=== PATIENT | female | born 1980 | race Caucasian/White ===

== ENCOUNTER 2023-07-14 14:20 | Emergency (ER) | payer OTHER, SELFPAY ==
[2023-07-14 14:22] VITALS: BP 133/92
[2023-07-14 14:55] LABS: % Basophils 0.5 % (0-2); % Eosinophils 0.3 % (0-6); % Immature Granulocytes 0.2 % (0-0.5); % Lymphocytes 15.9 % (20.5-51.1); % Monocytes 3.3 % (1.7-9.3); % Neutrophils 79.8 % (42.2-75.2); Absolute Basophils 0.1 10^3/uL (0-0.2); Absolute Lymphocytes 1.5 10^3/uL (1.2-3.4); Absolute Monocytes 0.3 10^3/uL (0.1-0.6); Absolute Neutrophils 7.3 10^3/uL (1.4-6.5); Hematocrit 43.4 % (37.0-47.0); Hemoglobin 15.1 g/dL (12.0-16.0); Mean Corp Hgb Conc. 34.8 g/dL (33.0-37.0); Mean Corpuscular Hgb 31.9 pg (27.0-31.0); Mean Corpuscular Volume 91.8 fL (81.0-99.0); Mean Platelet Volume 9.2 fL (7.4-10.4); Nucleated Red Blood Cells % 0 %; Platelet Count 254 10^3/uL (130-400); Red Blood Cell Count 4.73 10^6/uL (4.20-5.40); Red Cell Dist. Width 12.8 % (11.5-14.5); White Blood Cell Count 9.2 10^3/uL (4.8-10.8)
[2023-07-14 15:05] LABS: HCG, Serum Qualitative Screen Negative
[2023-07-14 15:08] LABS: ALT (SGPT) 19 U/L (0-35); AST (SGOT) 35 U/L (14-36); Albumin 4.9 g/dl (3.5-5.0); Alkaline Phosphatase 61 U/L (38-126); Blood Urea Nitrogen 18 mg/dl (7-17); Carbon Dioxide 27 mmol/L (22-30); Chloride 110 mmol/L (98-107); Glucose 93 mg/dl (70-99); Sodium 146 mmol/L (135-145); Total Bilirubin 0.4 mg/dl (0.2-1.3); Total Protein 7.9 g/dl (6.3-8.2); eGFR > 60.00
[2023-07-14 15:16] LABS: Alcohol 349 mg/dl
[2023-07-14 15:40] VITALS: BMI 18.0
--- NOTE | 2023-07-14 15:53 | ED.GENMED ---
History of Present Illness
General
Chief Complaint: Alcohol Problem
Time Seen by Provider: 07/14/23 15:40
Travel History
Have you had any contact with someone who has COVID-19?: No
Do you have any symptoms of coronavirus? Fever > 100 degrees, chills, cough, shortness of breath, sore throat, loss of taste or smell, muscle aches, or headache?: No
History of Present Illness
History of Present Illness:
HPI: Patient presents due to wanting help for alcohol use. She tried to get in to [facility] in [place], [place], but was told she needs to be medically cleared. They wanted medical clearance because of her low weight. She states that she fell last
night injuring the upper back. She has no trouble breathing.
EXAM:
GENERAL: Well appearing in no distress
HEENT: Moist oral mucosa
CARDIOVASCULAR: No murmurs, normal heart rate and rhythm, No chest wall tenderness
PULMONARY: No respiratory distress, breath sounds are clear and equal
ABDOMEN: Soft with no peritoneal signs, no tenderness
NEUROLOGIC: Excellent strength all extremities, no coordination deficits
PSYCHIATRIC: Appropriate mental status, normal insight and judgement, although she has a elevated alcohol level, she does not clinically appear intoxicated
EXTREMITIES: Nontender, no edema, moves all extremities equally
SKIN: There is an abrasion noted to the right periscapular region with no significant tenderness
ED COURSE:
4 PM: I initially evaluated patient
NUMBER AND COMPLEXITY OF PROBLEMS ADDRESSED AT THE ENCOUNTER
� Chronic conditions affecting care: Alcohol abuse, high blood pressure
� Acute Exacerbation and/or Progression of Chronic Illness: This is a chronic problem
� Differential Diagnosis includes: Alcoholism, electrolyte normality, poor nutritional status
AMOUNT AND/OR COMPLEXITY OF DATA TO BE REVIEWED AND ANALYZED
� I performed an independent evaluation of and my interpretation is:
EKG:
CT:
X-rays:
Laboratory Studies: CBC normal, of note MCV is 92, alcohol 349, hCG negative, albumin 4.9
Other:
� Review of other/old records: There are no old records available for review in [facility]
� Clinical information was obtained by an independent historian: Is here with a sober friend
� Prescriptions/Medications Considered but not given:
� Further testing considered but not performed:
RISK OF COMPLICATIONS AND/OR MORBIDITY OR MORTALITY OF PATIENT MANAGEMENT
� Social determinants of health affecting care: Lives at home
� Discussion with other providers: I spoke to Antonio from [facility] in [place]
� Escalation of care including admission/observation vs risk of discharge considered: As of 4:09 PM, I feel the patient is medically cleared. I did speak to Antonio at [facility] in [place] number [phone] currently they are
reviewing her chart for acceptance at their facility her current CIWA score is 1. At 4:50 PM, I was told by a friend that they were in contact with the facility in [place] and [place] has accepted the patient for rehab. I feel she is medically
cleared at this time. Although there was some concern for her nutritional status, her albumin is 4.9.
Phy Exam
Physical Exam
Physical Exam:
See HPI
Scores
Withdrawal Assessment of Alcohol
Withdrawal Assessment Completed?: Not applicable
Course
Orders/Labs/Results
Orders:
Orders
07/14/23 14:27
Test Result ONCE
07/14/23 14:39
Alcohol Urgent
CBC/With Diff [Complete Blood Count/With Diff] Urgent
CMP [Comprehensive Metabolic Panel] Urgent
HCG, Serum Qualitative Screen Urgent
Abnormal Lab Results
07/14/23
14:39
MCH 31.9 H pg
(27.0-31.0)
Absolute Neuts (auto) 7.3 H 10^3/uL
(1.4-6.5)
Neutrophils % 79.8 H %
(42.2-75.2)
Lymphocytes % 15.9 L %
(20.5-51.1)
Sodium 146 H mmol/L
(135-145)
Chloride 110 H mmol/L
(98-107)
BUN 18 H mg/dl
(7-17)
07/14/23 14:39
07/14/23 14:39
Vital Signs
Initial and Last Documented VS:
Initial Vital Signs
Temp Pulse Resp BP Pulse Ox
97.9 F 102 16 133/92 100
07/14/23 14:22 07/14/23 14:22 07/14/23 14:22 07/14/23 14:22 07/14/23 14:22
Last Documented Vital Signs
Temp Pulse Resp BP Pulse Ox
97.9 F 102 16 133/92 100
07/14/23 14:22 07/14/23 14:22 07/14/23 14:22 07/14/23 14:22 07/14/23 14:22
*Critical Care Note
Total Time (30-74mins, 75-104mins- exclusive of procedures): Not Applicable
ED Attending Note
-
Portions of this chart may have been created with voice recognition software.� Occasional wrong word or��sound alike� substitutions may have occurred due to the inherent limitations of voice recognition software.
Discharge Plan
Departure
Patient Disposition: Acute Rehab Facility
Date of Disposition: 07/14/23
Time of Disposition: 16:50
Discharge Problem:
Alcoholism
Referrals:
Andriy Savage MD [Family Provider] -
Activity Restrictions/Additional Instructions:
Proceed directly to the facility in [place]. I feel that you are medically cleared for alcohol rehab at this time. Return if worse.
Interventions
Interventions:
*Risk Screen - Suicide Last Done: 07/14/23 15:40
*General Assessment Last Done: 07/14/23 15:40
*Neglect/Abuse Screening Last Done: 07/14/23 15:40
*ED COVID-19 Vaccine History Last Done: 07/14/23 15:40
ED- Neurological Assessment Last Done: 07/14/23 15:40
ED-Psychological Assessment Last Done: 07/14/23 15:40
== END 2023-07-14 17:07 ==
LOC: EMR 14:20
PROVIDERS: Emergency Medicine; EMERGENCY PHYSICIAN Emergency Medicine; FAMILY PHYSICIAN Family Medicine
DX: F10.20 Alcohol dependence, uncomplicated (principal); S20.411A Abrasion of right back wall of thorax, initial encounter; Y90.8 Blood alcohol level of 240 mg/100 ml or more; W19.XXXA Unspecified fall, initial encounter; W10.9XXA Fall (on) (from) unspecified stairs and steps, initial encounter; Z02.79 Encounter for issue of other medical certificate; I10 Essential (primary) hypertension
CPT/HCPCS: 99283; 80053; 82077; 84703; 85025